=== PATIENT | female | born 1940 | race Caucasian/White ===

== ENCOUNTER → 2018-10-20 | Outpatient (CLI) | payer MEDICARE, BC | END | disposition home or self-care (01) | LOC: CFH 15:40 | PROVIDERS: ATTEND Family Medicine | DX: N26.1 Atrophy of kidney (terminal) (principal); N28.1 Cyst of kidney, acquired; N18.9 Chronic kidney disease, unspecified | CPT/HCPCS: 76770 ==

== ENCOUNTER → 2018-12-15 | Outpatient (CLI) | payer MEDICARE, BC | END | disposition home or self-care (01) | LOC: CFH 13:52 | PROVIDERS: ATTEND Family Medicine | DX: R92.8 Other abnormal and inconclusive findings on diagnostic imaging of breast (principal) | CPT/HCPCS: 76642; 77066; G0279 ==

== ENCOUNTER 2020-08-30 07:55 | Emergency (ER) | payer MEDICARE, BC ==
[~2020-08-30] VITALS: Ht 157.5 cm; Wt 85.9 kg
--- NOTE | 2020-08-30 08:17 | NUR ---
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
[2020-08-30] MEDS ORDERED: DEXAMETHASONE 4 MG TABLET PO ONE (08:30)
--- NOTE | 2020-08-30 08:35 | NUR ---
pt ama'd from [facility] yest, "they didn't do anything for me" pa in room for eval. labs/xr ordered. call td joseph on monitor. nad. as
[2020-08-30] MEDS ORDERED: DEXAMETHASONE 4 MG TABLET ONE (08:39)
[2020-08-30 08:53] LABS: BASOPHILS % (AUTO) 0 % (0-1); EOSINOPHILS % (AUTO) 0 % (1-7); LYMPHOCYTES % (AUTO) 10 % (22-44); MEAN CORPUSCULAR HGB CONC 33.7 g/dL (32.4-35.8); MEAN PLATELET VOLUME 7.2 fL (7.4-10.4); MONOCYTES % (AUTO) 7 % (2-9); NEUTROPHILS % (AUTO) 83 % (42-75); PLATELET COUNT 184 x10^3/uL (130-400); RED BLOOD COUNT 4.18 x10^6/uL (3.82-5.3); RED CELL DISTRIBUTION WIDTH 15.1 % (9.6-15.2)
[2020-08-30 08:57] LABS: MD NO
[2020-08-30 09:04] LABS: ALBUMIN 3.6 g/dL (3.4-5.0); ANION GAP 10 mmol/L (5-15); CALCIUM 8.8 mg/dL (8.5-10.1); CHLORIDE 108 mmol/L (98-107)
--- NOTE | 2020-08-30 09:17 | NUR ---
REPORT TO [facility]IS SERVIN.
[2020-08-30] MEDS ORDERED: FILTER 0.22 MICRON IV ONE (10:00)
[2020-08-30] MEDS ORDERED: AZITHROMYCIN 500 MG TABLET ONE (10:18)
[2020-08-30] MEDS ORDERED: CEFTRIAXONE PMX 1GM/50ML 50 ML ONE (10:18)
[2020-08-30] MEDS ORDERED: BAMLANIVIMAB 700 MG in SODIUM CHLORIDE 0.9% 180 ML IVPB ONE (10:30)
[2020-08-30] MEDS ORDERED: AZITHROMYCIN 500 MG TABLET PO ONE (10:30)
[2020-08-30] MEDS ORDERED: CEFTRIAXONE PMX 1GM/50ML 50 ML IV ONE (10:30)
--- NOTE | 2020-08-30 11:05 | NUR ---
WHEN PT RELAXES AND CLOSES EYES SPO2 DOWN TO 85%. 2L O2 NC ADMINISTERED. SPO2 95
--- NOTE | 2020-08-30 13:38 | NUR ---
PT AMBULATED ON ROOM AIR APPROX 50 FEET. PT SOB, SPO2 80-85%. PT STATES SHE DOESN'T USE OXYGEN AT HOME. CPAP AT NIGHT. PROVIDER NOTIFIED.
[2020-08-30 13:39] VITALS: BP 136/84
--- NOTE | 2020-08-30 14:15 | NUR ---
FLOAT NOTE: PT WAS AMBULATED BY DR. OSORIO AND MAINTAINED PULSE OX ABOVE [address] OSORIO AFTER RETURNING TO BED. THIS RN AMBULATED PT WITHOUT OXYGEN BUT WITH MOBILE PULSE OX MACHINE CONNECTED TO PATIENT, AND SHE WAS ABLE TO MAINTAIN PULSE OX ABOVE 90. PT REPORT SSHE FEELS BETTER AND IS READY TO GO HOME. PT AWARE IF SHE EXPERIENCES ANY WORSENING OF SYMPTOMS, OR NEW CP, TO RETURN IMMEDIATELY BY CALLING 911.
== END 2020-08-30 14:58 | disposition home or self-care (01) ==
LOC: ED 12:28
DX: U07.1 COVID-19 (principal); J12.9 Viral pneumonia, unspecified; I10 Essential (primary) hypertension; Z23 Encounter for immunization; R94.31 Abnormal electrocardiogram [ECG] [EKG]
CPT/HCPCS: 36415; 71045; 80048; 82040; 85025; 87040; 93005; 96365; 96368; 99285; J0696; J7050; M0239; Q2039